=== PATIENT | female | born 1995 ===

== ENCOUNTER 2023-11-28 18:12 | Inpatient (IN) | payer OTHER ==
[2023-11-28] MEDS ORDERED: Sodium Chloride 0.9% 20 ML SDV IV PRN (23:11)
[2023-11-28] MEDS ORDERED: Ondansetron 4 MG/2 ML SDV IVPUSH PRN (23:11)
[2023-11-28] MEDS ORDERED: Lidocaine 1% 50 ML MDV INJECT PRN (23:11)
[2023-11-28] MEDS ORDERED: Methylergonovine 0.2 MG/1 ML Amp IM PRN (23:11)
[2023-11-28] MEDS ORDERED: Carboprost Tromethamine 250 MCG/1 mL Vial IM PRN (23:11)
[2023-11-28] MEDS ORDERED: Sodium Chloride 0.9% 2.5 ML Syringe FLUSH PRN (23:11)
[2023-11-28] MEDS ORDERED: Tranexamic Acid IN NACL,ISO-OS 1,000 MG in Premix Bag 1 BAG IV PRN ×2 (23:11)
[2023-11-28] MEDS ORDERED: Water For Irrigation,Sterile 1,000 ML Container IRR PRN (23:11)
[2023-11-28] MEDS ORDERED: Sodium Chloride 0.9% 10 ML Syringe FLUSH PRN (23:11)
[2023-11-28] MEDS ORDERED: Misoprostol 200 MCG Tab PO PRN (23:11)
[2023-11-28] MEDS ORDERED: Nalbuphine 10 MG/0.5 ML Syringe IVPUSH PRN (23:11)
[2023-11-28] MEDS ORDERED: Oxytocin/0.9 % Sodium Chloride 30 UNIT/500 ML BAG IV SCH (23:15)
[2023-11-29] MEDS: Lactated Ringers 1,000 ML IV SCH ×3 (00:04→09:50)
[2023-11-29 00:21] LABS: HEMATOCRIT 37.9 % (37.0-47.0); HEMOGLOBIN 13.6 g/dL (12.0-16.0); MEAN CORPUSCULAR HEMOGLOBIN 34.3 pg (28.0-32.0); MEAN CORPUSCULAR HGB CONC 35.9 g/dL (32.0-36.0); MEAN CORPUSCULAR VOLUME 95.5 fL (83.0-99.0); MEAN PLATELET VOLUME 12.1 fL (9.4-12.3); PLATELET COUNT,PLT 170 K/uL (150-400); RED BLOOD CELL COUNT 3.97 M/uL (4.10-5.30); WHITE BLOOD CELL COUNT,WBC 11.37 K/uL (3.9-11.3)
[2023-11-29] MEDS ORDERED: Bupivacaine 0.5% 10 ML SDV ONE (09:14)
[2023-11-29] MEDS ORDERED: Ropivacaine HCl/PF 200 ML ONE (09:14)
[2023-11-29] MEDS ORDERED: Phenylephrine HCl 0.5 MG/5 ML AMP IVPUSH PRN (09:39)
[2023-11-29] MEDS ORDERED: ePHEDrine 50 MG/ML SDV IVPUSH PRN ×2 (09:39)
[2023-11-29] MEDS ORDERED: Ropivacaine HCl/PF 400 MG in Premix Bag 1 BAG EPIDUR SCH (09:45)
[2023-11-29] MEDS ORDERED: Docusate Sodium 100 MG Cap PO PRN (15:51)
[2023-11-29] MEDS ORDERED: Benzocaine/Menthol 20%-0.5% Spray 78 GM Cannister TOP PRN (15:51)
[2023-11-29] MEDS ORDERED: Witch Hazel Medicated Pads 40/Jar TOP PRN (15:51)
[2023-11-29] MEDS ORDERED: oxyCODONE 5 MG Tab PO PRN (15:51)
[2023-11-29] MEDS ORDERED: Acetaminophen 500 MG Tab PO PRN (15:51)
[2023-11-29] MEDS ORDERED: Lanolin 100% Cream 7 GM Tube TOP PRN (15:51)
[2023-11-29 16:09] LABS: PH,UMBILICAL ARTERIAL 7.118 (7.18-7.38); PH,UMBILICAL VENOUS 7.241 (7.25-7.45)
[2023-11-29] MEDS: Ibuprofen 800 MG Tab PO PRN (19:55)
[2023-11-30] MEDS: Ibuprofen 800 MG Tab PO PRN (02:44)
[2023-11-30 06:02] LABS: HEMATOCRIT 34.3 % (37.0-47.0); HEMOGLOBIN 12.1 g/dL (12.0-16.0)
== END 2023-11-30 08:15 | disposition home or self-care (01) | DRG 807 ==
LOC: MW.OBCHECK 18:12 → MW.OB 18:13 → MW.OBCHECK 23:11 → MW.OB 23:11 → OBSVTOIN 11-29 14:41 → MW.OB 11-29 19:30
PROVIDERS: ADMIT Obstetrics & Gynecology; ATTEND Obstetrics & Gynecology
PROC: 10E0XZZ Delivery of Products of Conception, External Approach (ICD-10-PCS; principal; 2023-11-29)
PROC: 0KQM0ZZ Repair Perineum Muscle, Open Approach (ICD-10-PCS; 2023-11-29)
PROC: 10907ZC Drainage of Amniotic Fluid, Therapeutic from Products of Conception, Via Natural or Artificial Opening (ICD-10-PCS; 2023-11-29)
PROC: 3E0R3BZ Introduction of Anesthetic Agent into Spinal Canal, Percutaneous Approach (ICD-10-PCS; 2023-11-29)
PROC: 00HU33Z Insertion of Infusion Device into Spinal Canal, Percutaneous Approach (ICD-10-PCS; 2023-11-29)
PROC: 3E033VJ Introduction of Other Hormone into Peripheral Vein, Percutaneous Approach (ICD-10-PCS; 2023-11-29)
DX: O99.284 Endocrine, nutritional and metabolic diseases complicating childbirth (principal); Z37.0 Single live birth; O70.1 Second degree perineal laceration during delivery; E03.9 Hypothyroidism, unspecified; Z3A.37 37 weeks gestation of pregnancy; Z90.89 Acquired absence of other organs; Z98.890 Other specified postprocedural states
CPT/HCPCS: 36415; 51701; 51702; 59025; 59409; 82803; 85014; 85018; 85027; 86592; 86850; 86900; 86901; A9270-GY; J0665; J2590; J2795; J7120